=== PATIENT | male | born 1985 | race Caucasian/White ===

== ENCOUNTER 2023-12-30 08:11 | Emergency (ER) | payer BC, SELFPAY ==
[2023-12-30 08:13] VITALS: BP 131/85
[2023-12-30 09:02] VITALS: BMI 22.7
--- NOTE | 2023-12-30 09:05 | ED.GENMED ---
History of Present Illness
General
Chief Complaint: Back Pain
Source: patient
Exam Limitations: none
Time Seen by Provider: 12/30/23 08:25
Nursing documentation reviewed up to this point in time: agreed with
History of Present Illness
History of Present Illness:
38-year-old male history of reflux social drinker, left upper back pain, started a day or 2 after being at the gym does not remember injuring himself, also feels like he has indigestion, no nausea or vomiting no fever chills had some relief with
Motrin and Tylenol, no rash, worse with lying flat, no prior episodes no leg edema
Past History
Past History
ED Past Medical History: GERD
ED Past Surgical History: Other (Muscle biopsy)
Social History
Tobacco: Non-smoker
Alcohol: Occasional
Drug: None
Personal:
Living: with family
Employment: Employed
Review of Systems
Review of Systems
All Other Systems: Not applicable
Constitutional: Denies fever or fatigue
EENT: Reports no symptoms
Respiratory: Reports trouble breathing
Cardiac: Reports chest pain (Indigestion); Denies syncope
ABD/GI: Reports abdominal pain (Indigestion)
: Denies dysuria, frequency or incontinence
Musculoskeletal: Reports back pain
Skin: Reports no symptoms
Neurological: Reports no symptoms
Hematologic/Lymphatic: Reports no symptoms
Psychiatric: Reports no symptoms
Phy Exam
Physical Exam
Physical Exam:
Physical Exam
General: no apparent distress, not acutely ill
Neck: No jaundice
Heart: Tachycardia
Lungs: no acute respiratory distress. clear bilaterally
Abdomen: Soft nontender
Neuro: alert and oriented. no focal neurological deficits
Skin: no rash
Psychiatric: well kept. interactive and cooperative
Extremities: no edema. no calf tenderness.
Course
Orders/Labs/Results
Orders:
Orders
12/30/23
Electrocardiogram (*1) Stat
Other Reason for Exam: CP
Comment: DONE
12/30/23 08:48
Pantoprazole [Protonix IV] 40 mg IV NOW STA
CR Chest - 2 Views Urgent
Comment:
Reason For Exam: cp
12/30/23 08:59
Complete Blood Count/With Diff Urgent
Comprehensive Metabolic Panel Urgent
D-Dimer Urgent
Lipase Urgent
Magnesium Urgent
TSH Urgent
Troponin I Urgent
12/30/23 10:12
Acetaminophen [Tylenol] 1,000 mg PO NOW STA
Ketorolac [Toradol] 30 mg IV NOW STA
12/30/23 10:13
0.9% Sodium Chloride 1000 ml [Nss] 1,000 ml IV BOLUS
Abnormal Lab Results
12/30/23
08:59
MPV 10.6 H fL
(7.4-10.4)
Absolute Lymphs (auto) 0.8 L 10^3/uL
(1.2-3.4)
Absolute Monos (auto) 0.9 H 10^3/uL
(0.1-0.6)
Lymphocytes % 11.5 L %
(20.5-51.1)
Monocytes % 13.4 H %
(1.7-9.3)
Glucose 102 H mg/dl
(70-99)
12/30/23 08:59
12/30/23 08:59
Vital Signs
Initial and Last Documented VS:
Initial Vital Signs
Temp Pulse Resp BP Pulse Ox
97.7 F 110 18 131/85 99
12/30/23 08:13 12/30/23 08:13 12/30/23 08:13 12/30/23 08:13 12/30/23 08:13
Last Documented Vital Signs
Temp Pulse Resp BP Pulse Ox
97.7 F 91 19 106/58 97
12/30/23 08:13 12/30/23 11:00 12/30/23 11:00 12/30/23 11:00 12/30/23 11:15
MDM/Problems Addressed
Differential Diagnosis Includes:
Musculoskeletal cause strain strain, PE less likely ACS have a history of reflux pancreatitis is a possibility, doubt dissection
MDM/Problems Addressed:
Chest pain tachycardia back pain
Chronic conditions affecting care:
Reflux
Acute Exacerbation and/or Progression of Chronic Illness:
Reflux
*Radiology
Radiology exam reviewed: preliminary read by ED provider
*Pulse Oximetry
Patient hypoxic: no
*EKG
Interpreted by ED Provider?: Yes
Interpretation: abnormal
Comparison EKG: no comparison EKG present
Heart Rate: 118
Rate: tachycardiac
Rhythm: sinus
Ischemia: non-specific ST changes
*Drug Room Clerk Interpretation
Rate: normal
Heart Rate: 88
Rhythm: sinus
*Critical Care Note
Total Time (30-74mins, 75-104mins- exclusive of procedures): Not Applicable
Update Note
Update Note:
Update chest x-ray noted for report pending troponin noted, D-dimer pending lipase noted
Patient still some mild pain mild tachycardia is abdomen soft nontender
Chest x-ray report noted D-dimer noted will try some Toradol, Tylenol liter fluid
Update patient feeling better will discharge with an NSAID and a muscle relaxant PCP follow-up ER for worsening symptoms
ED Attending Note
-
Portions of this chart may have been created with voice recognition software.� Occasional wrong word or��sound alike� substitutions may have occurred due to the inherent limitations of voice recognition software.
Discharge Plan
Departure
Patient Disposition: Home (Routine Discharge)
Date of Disposition: 12/30/23
Time of Disposition: 11:43
Patient with high blood pressure during this ER visit?: No
Condition: Good
Discharge Problem:
Back pain
Instructions: Upper Back Pain (DC)
Prescriptions:
New
metaxalone 400 mg tablet
800 mg PO TID PRN (Reason: muscle pain) Qty: 20 0RF
naproxen [Naprosyn] 500 mg tablet
500 mg PO BID PRN (Reason: Pain) Qty: 20 0RF
Referrals:
Tommie Martinez DO [Family Provider] - Next open appointment
Interventions
Interventions:
*Risk Screen - Suicide Last Done: 12/30/23 09:02
*General Assessment Last Done: 12/30/23 09:02
*Neglect/Abuse Screening Last Done: 12/30/23 09:02
ED- Fall Risk Assessment Last Done: 12/30/23 11:15
*ED COVID-19 Vaccine History Last Done: 12/30/23 08:47
ED-Musculoskeletal Assessment Last Done: 12/30/23 11:15
Discharge Date and Time
Print Language: FRISIAN
[2023-12-30] MEDS: PROTONIX IV 40 MG IV (09:12)
[2023-12-30 09:15] LABS: % Basophils 0.3 % (0-2); % Eosinophils 0.8 % (0-6); % Immature Granulocytes 0.2 % (0-0.5); % Lymphocytes 11.5 % (20.5-51.1); % Monocytes 13.4 % (1.7-9.3); % Neutrophils 73.8 % (42.2-75.2); Absolute Eosinophils 0.1 10^3/uL (0-0.7); Absolute Lymphocytes 0.8 10^3/uL (1.2-3.4); Absolute Monocytes 0.9 10^3/uL (0.1-0.6); Absolute Neutrophils 4.8 10^3/uL (1.4-6.5); Hematocrit 39.4 % (39.0-52.0); Mean Corp Hgb Conc. 35.5 g/dL (33.0-37.0); Mean Corpuscular Hgb 29.4 pg (27.0-31.0); Mean Corpuscular Volume 82.8 fL (80.0-94.0); Mean Platelet Volume 10.6 fL (7.4-10.4); Nucleated Red Blood Cells % 0 % (-); Platelet Count 152 10^3/uL (130-400); Red Blood Cell Count 4.76 10^6/uL (4.70-6.10); White Blood Cell Count 6.6 10^3/uL (4.8-10.8)
[2023-12-30 09:26] LABS: ALT (SGPT) 16 U/L (0-50); AST (SGOT) 18 U/L (17-59); Albumin 4.4 g/dl (3.5-5.0); Alkaline Phosphatase 62 U/L (38-126); Blood Urea Nitrogen 18 mg/dl (9-20); Calcium 9.9 mg/dl (8.4-10.2); Carbon Dioxide 28 mmol/L (22-30); Chloride 104 mmol/L (98-107); Estimated Creatinine Clearance 116 ml/min; Glucose 102 mg/dl (70-99); Lipase 52 U/L (23-300); Potassium 4.3 mmol/L (3.5-5.1); Sodium 142 mmol/L (135-145); Total Bilirubin 0.6 mg/dl (0.2-1.3); Total Protein 7.4 g/dl (6.3-8.2); eGFR > 60.00
[2023-12-30 09:37] LABS: Troponin I < 0.012 ng/ml
[2023-12-30 09:45] LABS: D-Dimer < 0.27 ug/mlFEU (0.00-0.50)
[2023-12-30 10:04] VITALS: BP 101/70
[2023-12-30] MEDS: TYLENOL 1000 MG PO (10:15)
[2023-12-30] MEDS: TORADOL 30 MG IV (10:16)
[2023-12-30] MEDS: NSS 1000 IV (10:18)
[2023-12-30 11:00] VITALS: BP 106/58
[2023-12-30 12:00] VITALS: BP 115/81
== END 2023-12-30 12:15 | disposition home or self-care (01) ==
LOC: EMR 08:11
PROVIDERS: EMERGENCY PHYSICIAN Emergency Medicine; FAMILY PHYSICIAN Family Medicine
DX: M54.6 Pain in thoracic spine (principal); K21.9 Gastro-esophageal reflux disease without esophagitis
CPT/HCPCS: 99285; 96374; 96375; 96361; 71046; 80053; 83690; 83735; 84443; 84484; 85025; 85379; 93005